=== PATIENT | male | born 2000 | race Caucasian/White ===

== ENCOUNTER 2020-07-16 17:59 | Emergency (ER) | payer BC, SELFPAY ==
--- NOTE | ~2020-07-16 | XR_ITS ---
EXAMINATION: XR ankle RT min 3V INDICATION: Right ankle pain TECHNIQUE: Four views of the right ankle are obtained. COMPARISON: None available FINDINGS: There is lateral and anterior soft tissue swelling of ankle. Bone alignment is normal. No f racture is identified. IMPRESSION: 1. Ankle soft tissue swelling without acute osseous abnormality. Reviewed, dictated and finalized at location A.
--- NOTE | 2020-07-16 18:01 | ED.LOWEXIN ---
HPI - Extremity Injury (Lower) General Chief Complaint: Extremity Injury, Lower Stated Complaint: right ankle injury Time Seen by Provider: 07/16/20 18:01 Source: patient and RN notes reviewed History of Present Illness HPI Narrative: Patient is a 19-year-old male who presents the urgent care with complaints of right ankle injury. Patient states that he was playing volleyball this evening and heard a pop and noticed immediate swelling to the lateral aspect of the right ankle and foot. Patient states that it is more painful to bear weight. States that he is kept it elevated with ice and ibuprofen. Denies of any other acute complaints or injuries. No acute distress noted. Patient aware of the plan of care. Some parts of this dictation were generated by voice recognition software and may contain typographical and/or grammatical inaccuracies. Related Data Home Medications Medication Instructions Recorded Confirmed bupropion HCl 150 mg PO DAILY 07/16/20 07/16/20 Allergies Allergy/AdvReac Type Severity Reaction Status Date / Time No Known Allergies Allergy Verified 07/16/20 18:23 Review of Systems Review of Systems: Narrative: CONSTITUTIONAL: Denies fever, chills, or sweats. EYES: Denies visual changes, redness, or discharge. ENT: Denies rhinorrhea, congestion, sore throat, or otalgia. CARDIOVASCULAR: Denies chest pain, palpitations, or edema. RESPIRATORY: Denies cough or dyspnea. GASTROINTESTINAL: Denies abdominal pain, nausea, vomiting, or diarrhea. GENITOURINARY: Denies dysuria or hematuria. SKIN: Denies rash or itching. MUSCULOSKELETAL: Reports of right ankle pain and swelling NEUROLOGIC: Denies headache, numbness, or weakness. All other systems reviewed are negative, except as documented in HPI. PMFSH Comments At the time of my signature, I reviewed and agree with the nursing past medical, surgical, social, and family history. There is no relevant family history pertinent to the patient complaint. Exam Narrative: Exam Narrative: GENERAL: This is a well-nourished, well-developed patient, in no apparent distress. HEAD: normocephalic, atraumatic. EYES: PERRL. Sclera clear/white. Vision is grossly intact. EARS: External ears normal NOSE: External nose normal with no obvious nasal discharge, nares without redness, no rhinorrhea. THROAT: Mucous membranes moist NECK: Neck supple SKIN: warm, intact with no suspicious lesions or rash, good texture and turgor. NEURO: awake, alert, and oriented to person, place and time. There were no obvious focal neurologic abnormalities. EXTREMITIES: Moderate lateral right malleolus edema and tenderness extending into the lateral right dorsal foot. Range of motion not tested due to pain. Pain exacerbated with weightbearing. No obvious deformity to the right lower extremity. Positive strong right pedal pulse with capillary refill less than 2 seconds. Course Vital Signs Vital signs: Vital Signs Temperature 98.6 F 07/16/20 18:04 Pulse Rate 96 07/16/20 18:04 Respiratory Rate 18 07/16/20 18:04 Blood Pressure 134/70 07/16/20 18:04 Pulse Oximetry 100 07/16/20 18:04 Temperature 98.6 F 07/16/20 18:04 Pulse Rate 96 07/16/20 18:04 Respiratory Rate 18 07/16/20 18:04 Blood Pressure 134/70 07/16/20 18:04 Pulse Oximetry 100 07/16/20 18:04 Reviewed MDM - Extremity Injury (Lower) MDM Narrative Medical decision making narrative: Reviewed x-ray results with the patient. He is aware the x-ray was negative. Advised the patient to wear an Edward wrap or a ankle splint for the next week for support. Stay off the foot for the next 3 to 5 days and keep it elevated. Use Tylenol/ibuprofen and ice for comfort and pain. If you develop any increase in swelling or persistent pain?follow-up with an orthopedic. Follow-up with your PCP within 2 to 5 days if her worsening symptoms or failure to improve. Differential Diagnosis Differential diagnosis: Likely ankle sprain and
[2020-07-16 18:04] VITALS: BP 134/70; PULSE 96; RESP 18; TEMP 37; O2SAT 100
--- NOTE | 2020-07-16 18:40 | PC.NURSE ---
PT DECLINED WHEELCHAIR TO RADIOLOGY
== END 2020-07-16 18:50 | disposition home or self-care (01) ==
PROVIDERS: Emergency Provider Nurse Practitioner Family; PCP Nurse Practitioner Family
DX: S93.401A Sprain of unspecified ligament of right ankle, initial encounter (principal); S96.911A Strain of unspecified muscle and tendon at ankle and foot level, right foot, initial encounter; X58.XXXA Exposure to other specified factors, initial encounter; Y93.68 Activity, volleyball (beach) (court); F32.9 Major depressive disorder, single episode, unspecified
CPT/HCPCS: 73610; 99213; G0463

== ENCOUNTER 2022-03-07 17:57 | Emergency (ER) | payer BC, SELFPAY ==
[2022-03-07 18:01] VITALS: BP 154/96; PULSE 105; RESP 20; TEMP 38.1; O2SAT 100
--- NOTE | 2022-03-07 18:02 | ED.URI ---
HPI - URI/Sore Throat General Chief Complaint: Upper Respiratory Infection Stated Complaint: ear and headache body aches drainage Time Seen by Provider: 03/07/22 18:03 Source: patient Mode of arrival: ambulatory Limitations: no limitations History of Present Illness HPI Narrative: Dyllan is a 21-year-old male patient presenting to the clinic today with complaints of bilateral ear pain, sore throat, runny nose, headache, body aches, and fever x 3 days. He reports he got strep often as a kid and had a tonsillectomy when he was in preschool. Related Data Home Medications Medication Instructions Recorded Confirmed bupropion HCl 300 mg 24 hr tablet, 1 tablet PO DAILY 03/07/22 03/07/22 extended release Allergies Allergy/AdvReac Type Severity Reaction Status Date / Time No Known Allergies Allergy Verified 03/07/22 18:17 Review of Systems Review of Systems: Pertinent positives per HPI. Patient denies any rash, visual changes, dizziness, shortness of breath, chest pain, palpitations, nausea, vomiting, diarrhea, constipation, abdominal pain, or any urinary issues. PMFSH Comments At the time of my signature, I reviewed and agree with the nursing past medical, surgical, social, and family history. There is no relevant family history pertinent to the patient complaint. Exam Narrative: General: Well-developed, well nourished, in no apparent distress Head: Normocephalic, atraumatic Eyes: Pupils equally round and reactive to light bilaterally, EOM intact, sclera and conjunctive clear, no discharge, lids normal Ears: TMs intact and clear, ear canals clear, no drainage, grossly hearing normal. Nose: Nares patent, no discharge, clear nasal inflammation, no sinus tenderness. Mouth: Oropharynx without lesions or masses, good dentition, MMM. Oropharynx red Neck: Supple, trachea midline, no enlargement of anterior or posterior cervical nodes, no thyroid masses or goiter palpable. Cardio: Regular rate and rhythm, s1 and s2 normal, no murmur appreciated. Resp: Clear to auscultation bilaterally anteriorly and posteriorly, no rhonchi, rales, wheezing or rubs Course Course Emergency Course: Portions of this record may have been created with voice recognition software. Level of Care: Express Care Visit Vital Signs Vital signs: Vital signs reviewed MDM - URI/Sore Throat MDM Narrative Medical decision making narrative: At the time of visit patient is resting comfortably on the exam table. Strep screen, influenza, and COVID testing was completed influenza testing and strep screen was negative. COVID-19 test was positive. Discussed the use of oral antibodies (Paxlovid) and patient is agreeable to this. Differential Diagnosis Differential diagnosis: Likely upper respiratory infection, otitis media, sinusitis, viral infection, bronchitis, influenza, pharyngitis and other (COVID-19) Discharge Plan Discharge Clinical Impression: COVID-19 Patient Disposition: Home, Self-Care Condition: Stable Instructions: Antibiotic Form, How To Wash Your Hands (ED), Droplet Precautions (ED), COVID-19 (Coronavirus Disease 2019) (ED), Face Coverings (Masks) and COVID-19 (ED), How to Recover from COVID-19 at Home (ED) Additional Instructions: Take prescription medications only as prescribed-Paxlovid Increase fluids and stay well hydrated Tylenol/motrin for pain/fever Flonase and OTC antihistamines as directed Vicks vapor rub to open sinuses Sinus rinses for congestion Cepacol spray, cough drops, throat lozenges, warm tea with honey/lemon, gargle salt water to soothe throat BRAT diet for diarrhea Clear liquids x 24 hours then advance as tolerated for nausea/vomiting May return to the clinic if symptoms worsen Go to the ED if you develop high fever not controlled by Tylenol or Motrin, dehydration, weakness, lethargy, shortness of breath, or chest pain. Follow up with your PCP in 3-5 days if symptoms persist. Pres
== END 2022-03-07 18:43 | disposition home or self-care (01) ==
PROVIDERS: Emergency Provider Nurse Practitioner Family; PCP Nurse Practitioner Family
DX: U07.1 COVID-19 (principal)
CPT/HCPCS: 87081; 87426; 87804; 87880; 99213; C9803; G0463

== ENCOUNTER 2022-03-11 14:03 | Emergency (ER) | payer BC, SELFPAY ==
--- NOTE | ~2022-03-11 | XR_ITS ---
EXAMINATION: XR chest 2V DATE: 03/11/2022 14:24 INDICATION: COVID positive. Progressing cough. TECHNIQUE: PA and lateral views of the chest were obtained. COMPARISON: None FINDINGS: The lungs are clear with no focal airspace opacities, pulmonary edema, pleural effusion or pneumothor ax. The cardiomediastinal silhouette is normal. Visualized bones and soft tissues are unremarkable. IMPRESSION: 1. Normal chest radiograph. Reviewed, dictated and finalized at location B. IMPRESSION: 1. Normal chest radiograph.
[2022-03-11 14:10] VITALS: BP 157/93; PULSE 112; RESP 18; TEMP 37.3; O2SAT 100
--- NOTE | 2022-03-11 14:19 | ED.URI ---
HPI - URI/Sore Throat General Chief Complaint: Upper Respiratory Infection Stated Complaint: covid positive Tuesday - Feeling worse Time Seen by Provider: 03/11/22 14:10 Source: patient and RN notes reviewed History of Present Illness HPI Narrative: Patient is a 21-year-old male who presents the urgent care with complaints of persistent cough, chest congestion, fatigue and sore throat since being diagnosed Tuesday with COVID. Patient was diagnosed at our facility Tuesday, went to the emergency room on Tuesday, and is now back today for the same symptoms. Patient has not had a fever for the last several days. Denies of any nausea or vomiting. Denies any short of breath. Patient states that they gave him Vicodin 1 time in the ER for his sore throat and he has been consistently taking Tylenol and ibuprofen. Patient was also given Paxlovid. No other acute complaints. No acute distress noted. Patient aware of the plan of care. Some parts of this dictation were generated by voice recognition software and may contain typographical and/or grammatical inaccuracies. Related Data Home Medications Medication Instructions Recorded Confirmed bupropion HCl 300 mg 24 hr tablet, 1 tablet PO DAILY 03/07/22 03/11/22 extended release Allergies Allergy/AdvReac Type Severity Reaction Status Date / Time No Known Allergies Allergy Verified 03/11/22 14:12 Review of Systems Review of Systems: CONSTITUTIONAL: Denies fever, chills, or sweats. Reports of fatigue EYES: Denies visual changes, redness, or discharge. ENT: Denies rhinorrhea, congestion, or otalgia. Reports of severe sore throat CARDIOVASCULAR: Denies chest pain, palpitations, or edema. RESPIRATORY: Reports of cough and chest congestion GASTROINTESTINAL: Denies abdominal pain, nausea, vomiting, or diarrhea. GENITOURINARY: Denies dysuria or hematuria. SKIN: Denies rash or itching. MUSCULOSKELETAL: Denies back pain, joint pain, or myalgia. NEUROLOGIC: Denies headache, numbness, or weakness. All other systems reviewed are negative, except as documented in HPI. PMFSH Comments At the time of my signature, I reviewed and agree with the nursing past medical, surgical, social, and family history. There is no relevant family history pertinent to the patient complaint. Exam Narrative: GENERAL: This is a well-nourished, well-developed patient, in no apparent distress. HEAD: normocephalic, atraumatic. EYES: PERRL. Sclera clear/white. Vision is grossly intact. EARS: External ears normal, auditory canals clear and without drainage, TMs normal without perforation. Hearing grossly intact. NOSE: External nose normal with no obvious nasal discharge, nares without redness, no rhinorrhea. THROAT: Mucous membranes moist, mild erythema noted posterior oropharynx with mild postnasal drainage NECK: Neck supple, non-tender without lymphadenopathy CARDIOVASCULAR: Regular rate and rhythm without murmurs, gallops, or rubs. RESPIRATORY: Clear to auscultation. Slightly diminished right lower lobe. No wheezes, rales, or rhonchi. SKIN: warm, intact with no suspicious lesions or rash, good texture and turgor. NEURO: awake, alert, and oriented to person, place and time. There were no obvious focal neurologic abnormalities. EXTREMITIES: No clubbing, cyanosis, or edema. Course Course Level of Care: Express Care Visit Vital Signs Vital signs: Vital Signs Temperature 99.2 F 03/11/22 14:10 Pulse Rate 112 H 03/11/22 14:10 Respiratory Rate 18 03/11/22 14:10 Blood Pressure 157/93 H 03/11/22 14:10 Pulse Oximetry 100 03/11/22 14:10 Oxygen Delivery Room Air 03/11/22 14:10 Temperature 99.2 F 03/11/22 14:10 Pulse Rate 112 H 03/11/22 14:10 Respiratory Rate 18 03/11/22 14:10 Blood Pressure 157/93 H 03/11/22 14:10 Pulse Oximetry 100 03/11/22 14:10 Oxygen Delivery Room Air 03/11/22 14:10 Reviewed-patient is informed that they may have pre-hypertension or hypertension based on
[2022-03-11 14:36] VITALS: BP 157/93; PULSE 112; RESP 18; TEMP 37.3; O2SAT 100
== END 2022-03-11 14:43 | disposition home or self-care (01) ==
PROVIDERS: Emergency Provider Nurse Practitioner Family; PCP Nurse Practitioner Family
DX: U09.9 Post COVID-19 condition, unspecified (principal); F41.9 Anxiety disorder, unspecified; F32.A Depression, unspecified
CPT/HCPCS: 71046; 99213; G0463

== ENCOUNTER 2022-03-17 09:41 | Emergency (ER) | payer BC, SELFPAY ==
--- NOTE | ~2022-03-17 | XR_ITS ---
XR ribs RT 2V w CXR 2V DATE: 03/17/2022 10:05 INDICATION: Right anterior rib pain after cough TECHNIQUE: PA and lateral chest. 3 views of the right ribs. COMPARISON: 03/11/2022 2 view chest FINDINGS: No right rib fracture or bone destruction is detected. No other significant bony abnormalit y. Normal heart size. No hilar or mediastinal enlargement. The lungs are clear of infiltrate or consolid ation. No pleural effusion or pulmonary laceration or pneumothorax. IMPRESSION: Negative examination Reviewed, dictated and finalized at location A. IMPRESSION: Negative examination
--- NOTE | 2022-03-17 09:44 | ED.CHESTPAIN ---
HPI - Chest Pain General Chief Complaint: Unspecified Stated Complaint: Right rib pain Time Seen by Provider: 03/17/22 09:43 Source: patient Mode of arrival: ambulatory Limitations: no limitations History of Present Illness HPI narrative: Mr. Arenas is a 21-year-old male patient presenting to the clinic today with complaints of right rib pain 2 to 3 days. He has been recently treated for COVID. States that he has been coughing so much that he has developed right-sided rib pain and he thinks this is possibly due to a pulled muscle or inflammation in the ribs. He reports that the pain is a little worse with inspiration however its more painful with coughing and movement. States he is having a productive cough with green phlegm. He denies any shortness of this time. He recently had a chest x-ray done 6 days ago when he was seen in the ER and it was negative at that time. He denies any new fever or chills. MD complaint: other (Rib pain) Related Data Home Medications Medication Instructions Recorded Confirmed bupropion HCl 300 mg 24 hr tablet, 1 tablet PO DAILY 03/07/22 03/17/22 extended release Allergies Allergy/AdvReac Type Severity Reaction Status Date / Time No Known Allergies Allergy Verified 03/17/22 09:54 Review of Systems Review of Systems: Pertinent positives per HPI. Patient denies any fever, chills, rash, headache, visual changes, dizziness, cough, runny nose, sore throat, shortness of breath, palpitations, nausea, vomiting, diarrhea, constipation, abdominal pain, or any urinary issues. PMFSH Comments At the time of my signature, I reviewed and agree with the nursing past medical, surgical, social, and family history. There is no relevant family history pertinent to the patient complaint. Exam Narrative: General: Well-developed, well nourished, in no apparent distress Head: Normocephalic, atraumatic. Chest: Normal appearance, even rise and fall of the chest wall with inspiration and expiration, tenderness to palpation over the right mid rib just below the breast Cardio: Regular rate and rhythm, s1 and s2 normal, no murmur appreciated. Resp: Clear to auscultation bilaterally, no rhonchi, rales, wheezing or rubs. Extremities: No deformity, no edema, no cyanosis, capillary refill less than 2 seconds, peripheral pulses palpable and strong. Integumentary: [place], warm, and dry, intact without lesion, no rashes. Course Course Emergency Course: Portions of this record may have been created with voice recognition software. Level of Care: Express Care Visit Vital Signs Vital signs: Vital signs reviewed MDM - Chest Pain MDM Narrative Medical decision making narrative: At the time of visit patient is resting comfortably on the exam table. He reports that he is having right-sided rib pain/chest wall pain with a productive cough. He is post COVID. Chest x-ray was obtained to rule out post COVID-pneumonia and was negative. I suspect the patient has a pulled muscle or chest wall inflammation. I will give a prescription for some prednisone for inflammation of the chest wall. Differential Diagnosis Differential diagnosis: Likely fracture of rib, atypical chest pain, costochondritis, chest pain and other (Chest wall inflammation, COVID-pneumonia, costochondritis) Discharge Plan Discharge Clinical Impression: Acute chest wall pain Patient Disposition: Home, Self-Care Condition: Stable Instructions: Chest Wall Pain (ED) Additional Instructions: Prednisone as prescribed Chest x-ray was negative for any pneumonia or rib fracture. Tylenol/Motrin as needed for pain or fever Increase fluids and stay well-hydrated Follow-up with your PCP and 3 to 5 days if symptoms persist or sooner if they worsen. Prescriptions: New prednisone 20 mg tablet 40 mg PO DAILY 5 Days Qty: 10 0RF No Action bupropion HCl 300 mg tablet extended release 24 hr 1 tablet PO DAILY Follow-up/Referr
[2022-03-17 09:45] VITALS: BP 150/82; PULSE 104; RESP 18; TEMP 36.9; O2SAT 99
--- NOTE | 2022-03-17 19:47 | ED.CHESTPAIN ---
HPI - Chest Pain General Chief Complaint: Unspecified Stated Complaint: Right rib pain Time Seen by Provider: 03/17/22 09:43 Source: patient Mode of arrival: ambulatory Limitations: no limitations History of Present Illness HPI narrative: Dyllan is a 21-year-old male patient presenting to the clinic today with complaints of right-sided rib pain. He reports that he has been coughing so hard due to his COVID. He has finished his COVID treatment however he is concerned that he may have pneumonia or may be some inflammation in his rib due to this Related Data Home Medications Medication Instructions Recorded Confirmed bupropion HCl 300 mg 24 hr tablet, 1 tablet PO DAILY 03/07/22 03/17/22 extended release Allergies Allergy/AdvReac Type Severity Reaction Status Date / Time No Known Allergies Allergy Verified 03/17/22 09:54 Course Vital Signs Vital signs: Vital Signs Temperature 36.9 C 03/17/22 09:45 Pulse Rate 104 H 03/17/22 09:45 Respiratory Rate 18 03/17/22 09:45 Blood Pressure 150/82 H 03/17/22 09:45 Pulse Oximetry 99 03/17/22 09:45 Oxygen Delivery Room Air 03/17/22 09:45 Temperature 36.9 C 03/17/22 09:45 Pulse Rate 104 H 03/17/22 09:45 Respiratory Rate 18 03/17/22 09:45 Blood Pressure 150/82 H 03/17/22 09:45 Pulse Oximetry 99 03/17/22 09:45 Oxygen Delivery Room Air 03/17/22 09:56 Discharge Plan Discharge Clinical Impression: Acute chest wall pain Patient Disposition: Home, Self-Care Condition: Stable Instructions: Chest Wall Pain (ED) Additional Instructions: Prednisone as prescribed Chest x-ray was negative for any pneumonia or rib fracture. Tylenol/Motrin as needed for pain or fever Increase fluids and stay well-hydrated Follow-up with your PCP and 3 to 5 days if symptoms persist or sooner if they worsen. Prescriptions: New prednisone 20 mg tablet 40 mg PO DAILY 5 Days Qty: 10 0RF No Action bupropion HCl 300 mg tablet extended release 24 hr 1 tablet PO DAILY Follow-up/Referrals: Hank,KELVIN Carrillo [Primary Care Provider] - Time of Disposition: 10:20
== END 2022-03-17 10:25 | disposition home or self-care (01) ==
PROVIDERS: Emergency Provider Nurse Practitioner Family; PCP Nurse Practitioner Family
DX: R07.89 Other chest pain (principal); Z86.16 Personal history of COVID-19; F32.A Depression, unspecified; F41.9 Anxiety disorder, unspecified
CPT/HCPCS: 71046; 71100; 99213; G0463

== ENCOUNTER 2022-09-07 09:28 | Emergency (ER) | payer BC, SELFPAY ==
[2022-09-07 09:57] VITALS: BP 141/80; PULSE 102; RESP 16; TEMP 37.3; O2SAT 100
--- NOTE | 2022-09-07 10:52 | ED.URI ---
HPI - URI/Sore Throat General Chief Complaint: Upper Respiratory Infection Stated Complaint: Cough/Fever Time Seen by Provider: 09/07/22 10:46 Source: patient and RN notes reviewed Mode of arrival: ambulatory Limitations: no limitations History of Present Illness HPI Narrative: 21-year-old male presents with concern for fever, cough, headache, sore throat. Reports symptoms started on Tuesday. Reports taking DayQuil NyQuil. He reports he has history of strep throat. MD elicited complaint: cough and sore throat Related Data Home Medications Medication Instructions Recorded Confirmed bupropion HCl 300 mg 24 hr tablet, 1 tablet PO DAILY 03/07/22 03/17/22 extended release hydroxyzine HCl 25 mg tablet mg 09/07/22 Allergies Allergy/AdvReac Type Severity Reaction Status Date / Time No Known Allergies Allergy Verified 03/17/22 09:54 Review of Systems Review of Systems: CONSTITUTIONAL: Reports malaise, fever. EYES: Denies visual changes, redness, or discharge. ENT: Reports rhinorrhea, congestion, sore throat. Denies sinus pain, otalgia CARDIOVASCULAR: Denies chest pain, palpitations, or edema. RESPIRATORY: Reports cough. Denies dyspnea. GASTROINTESTINAL: Denies abdominal pain, nausea, vomiting, diarrhea SKIN: Denies rash or itching. MUSCULOSKELETAL: Denies myalgia. NEUROLOGIC: Reports headache. All systems reviewed & are unremarkable except as noted in HPI and below PMFSH Comments At time of signature, agree with nursing past medical, surgical, social and family history. There is no relevant family history pertinent to the presenting complaint Exam Narrative: GENERAL: Well-appearing, well-nourished, and in no acute distress. HEAD: Normocephalic EYES: PERRLA, conjunctivae clear ENT: Nares clear, turbinates edematous and erythematous, clear discharge. Mucous membranes moist. TM pearly dumont with dull light reflex bilaterally; no tragal tenderness. Oropharynx not erythematous without lesions. Tonsils not enlarged and without exudate, no drooling, no hoarseness, no trismus, uvula midline. NECK: Supple. No lymphadenopathy CHEST: Clear to auscultation, breath sounds equal. No wheezing, rhonchi, rales, or stridor. No respiratory distress, speaks in full sentences. HEART: Regular rate and rhythm. No murmur heard. SKIN: Warm, dry, no rash. NEURO: Alert and oriented x3. PSYCH: Normal mood and affect Course Course Emergency Course: Patient is aware of diagnosis, understands and agrees to treatment plan. Anticipatory guidance given. Patient agrees to follow-up as directed and is aware of reasons to seek care at the emergency department. Portions of this record may have been created with voice recognition software Level of Care: Express Care Visit Vital Signs Vital signs: Vital Signs Temperature 99.2 F 09/07/22 09:57 Pulse Rate 102 H 09/07/22 09:57 Respiratory Rate 16 09/07/22 09:57 Blood Pressure 141/80 H 09/07/22 09:57 Pulse Oximetry 100 09/07/22 09:57 Oxygen Delivery Room Air 09/07/22 09:57 Temperature 99.2 F 09/07/22 09:57 Pulse Rate 102 H 09/07/22 09:57 Respiratory Rate 16 09/07/22 09:57 Blood Pressure 141/80 H 09/07/22 09:57 Pulse Oximetry 100 09/07/22 09:57 Oxygen Delivery Room Air 09/07/22 09:57 Reviewed. MDM - URI/Sore Throat MDM Narrative Medical decision making narrative: Differential diagnosis considered: Rodriguez virus, strep pharyngitis, allergic rhinitis, upper respiratory tract infection, sinusitis, rhinosinusitis, nasopharyngitis. viral pharyngitis, otitis media, otitis externa, pneumonia, bronchitis, viral cough syndrome, viral syndrome, and influenza. Exam findings show no acute concerns or changes; patient is non-toxic appearing and is in no distress. Patient is appropriate for outpatient treatment and follow-up. Lab Data Attestation: I reviewed the patient's lab results. Labs: Influenza A Screen Positive
== END 2022-09-07 11:28 | disposition home or self-care (01) ==
PROVIDERS: Emergency Provider Nurse Practitioner; PCP Nurse Practitioner Family
DX: J10.1 Influenza due to other identified influenza virus with other respiratory manifestations (principal)
CPT/HCPCS: 87081; 87804; 87880; 99213; G0463

== ENCOUNTER 2023-03-05 13:08 | Emergency (ER) | payer BC, SELFPAY ==
[2023-03-05 13:16] VITALS: BP 138/73; PULSE 92; RESP 18; TEMP 36.7; O2SAT 100
--- NOTE | 2023-03-05 13:36 | ED.MALEGU ---
HPI - Male Genitourinary General Chief complaint: Urogenital-Male Stated complaint: Urinary Problem History of Present Illness HPI Narrative: 22-year-old male presents to the [facility] Care complaining of pain with urination. Patient stated the pain with urination started about 3 days ago. Denies any increased frequency or blood in urine. Patient states he has had unprotected sex recently states he is not concerned for an STD but is not sure if he has been in contact with 1. Patient denies any testicle pain, swelling, or any penile discharge. Patient states there is some redness to the meatus of his penis. Patient denies any rashes or lesions. Patient stated he did have some suprapubic abdominal pain about 3 days ago but since then has subsided. Denies any fevers, chills, body aches, nausea, vomiting, diarrhea Related Data Home Medications Medication Instructions Recorded Confirmed bupropion HCl 300 mg 24 hr tablet, 1 tablet PO DAILY 03/07/22 03/05/23 extended release Allergies Allergy/AdvReac Type Severity Reaction Status Date / Time No Known Allergies Allergy Verified 03/05/23 13:27 Review of Systems Review of Systems: CONSTITUTIONAL: Denies fever, chills, or sweats. EYES: Denies visual changes, redness, or discharge. ENT: Denies otalgia and sore throat CARDIOVASCULAR: Denies chest pain, palpitations, or edema. RESPIRATORY: Denies cough or dyspnea. GASTROINTESTINAL: Denies abdominal pain, nausea, vomiting, or diarrhea. GENITOURINARY: Positive for dysuria. Negative for hematuria. SKIN: Denies rash or itching. MUSCULOSKELETAL: Denies back pain, joint pain, or myalgia. NEUROLOGIC: Denies headache, numbness, or weakness. Pertinent positives per HPI. PMFSH Comments At the time of my signature, I reviewed and agree with the nursing past medical, surgical, social, and family history. There is no relevant family history pertinent to the patient complaint. Exam Narrative: GENERAL: This is a well-nourished, well-developed patient, in no apparent distress. HEAD: normocephalic, atraumatic. EYES: Sclera clear/white. Vision is grossly intact. EARS: External ears normal, auditory canals clear and without drainage. Hearing grossly intact. NOSE: External nose normal with no obvious nasal discharge, nares without redness, no rhinorrhea. THROAT: Mucous membranes moist, posterior pharynx clear. NECK: Neck supple, non-tender without lymphadenopathy, masses or thyromegaly. CARDIOVASCULAR: Regular rate and rhythm without murmurs, gallops, or rubs. RESPIRATORY: Clear to auscultation. Breath sounds equal bilaterally. No wheezes, rales, or rhonchi. GASTROINTESTINAL: Abdomen soft, non-tender, nondistended. Bowel sounds are active. No hepato-splenomegaly, or palpable masses. No guarding. GENITOURINARY: Mild erythema to the meatus of the penis. No discharge, lesions, or rash. No scrotal swelling or testicular tenderness. SKIN: warm, intact with no suspicious lesions or rash, good texture and turgor. NEURO: awake, alert, and oriented to person, place and time. There were no obvious focal neurologic abnormalities. EXTREMITIES: No clubbing, cyanosis, or edema. No joint tenderness, effusion, or edema noted. BACK: Nontender without deformity or crepitus. No flank tenderness. Course Course Level of Care: Express Care Visit Vital Signs Vital signs: Vital Signs Temperature 98.1 F 03/05/23 13:16 Pulse Rate 92 03/05/23 13:16 Respiratory Rate 18 03/05/23 13:16 Blood Pressure 138/73 03/05/23 13:16 Pulse Oximetry 100 03/05/23 13:16 Oxygen Delivery Room Air 03/05/23 13:16 Temperature 98.1 F 03/05/23 13:16 Pulse Rate 92 03/05/23 13:16 Respiratory Rate 18 03/05/23 13:16 Blood Pressure 138/73 03/05/23 13:16 Pulse Oximetry 100 03/05/23 13:16 Oxygen Delivery Room Air 03/05/23 13:16 MDM - Male Genitourinary MDM Narrative Medical decision making narrative: You were treated prophylacti
[2023-03-05] MEDS: cefTRIAXone 500 MG, LIDOCAINE HCL 1% LOCAL INJ 1 ML IM (13:42)
== END 2023-03-05 14:05 | disposition home or self-care (01) ==
PROVIDERS: Emergency Provider Nurse Practitioner Family; PCP Nurse Practitioner Family
DX: R30.0 Dysuria (principal); F41.9 Anxiety disorder, unspecified; F32.A Depression, unspecified; Z86.16 Personal history of COVID-19
CPT/HCPCS: 81003; 87086; 87491; 87591; 87661; 96372; 99213; G0463; J0696

== ENCOUNTER 2025-06-24 19:13 | Emergency (ER) | payer OTHER, SELFPAY ==
[2025-06-24 19:18] VITALS: BP 150/96; PULSE 80; RESP 18; TEMP 36.7; O2SAT 100
--- OUTSIDE RECORDS SUMMARY | 2025-06-24 19:28 | XMS_ITS | Clinical Summary ---
Author Organization [facility] Address [address] [place] [address] Care Team Providers Care Graphics Intern Name Role Phone Gerardo Mckinney NP Primary Care Provider [phone] Allergies No known active allergies Medications buPROPion XL (WELLBUTRIN XL) 300 mg 24 hr tablet Take 1 tablet (300 mg total) by mouth daily Active azithromycin (ZITHROMAX) 250 mg tabletIndication s:Upper respiratory tract infection, unspecified type Take two tabs first day, then one tab daily x 4 days 6 tablet 08/15/2024 Active Active Problems No known active problems Social History Tobacco Use Types Packs/Day Years Used Date Smoking Tobacco: Never Assessed Sex and Gender Information Value Date Recorded Sex Assigned at Not on file Legal Sex Male 6:47 PM [employer] Gender Identity Not on file Sexual Orientation Not on file Obstetrics History Last Filed Vital Signs Vital Sign Reading Time Taken Comments Blood Pressure 126/80 08/15/2024 5:31 PM [employer] Pulse 88 08/15/2024 5:31 PM [employer] Temperature 37.1 C (98.8 F) 08/15/2024 5:31 PM [employer] Respiratory Rate 18 08/15/2024 5:31 PM [employer] Oxygen Saturation 99% 08/15/2024 5:31 PM [employer] Inhaled Oxygen Concentration - - Weight 71.7 kg (158 lb) 08/15/2024 5:31 PM [employer] Height 175.3 cm (5' 9) 08/15/2024 5:31 PM [employer] Body Mass Index 23.33 08/15/2024 5:31 PM [employer] Plan of Treatment Health Maintenance Due Date Last Done Comments Depression Screening 1999 Hepatitis C Screening 1999 Regular Well Visit/Exam 18-64 12/27/2017 DTaP/Tdap/Td Vaccine (7 - Td or Tdap) 05/29/2020 05/29/2010, 04/05/2005, 03/31/2001, Additional history exists Covid-19 Vaccine (4 2024-2 6 season) 2025 08/31/2021, 12/19/2020, 11/21/2020 Influenza Vaccine (#1) 2025 , 08/29/2021, 07/01/2017, Additional history exists Pneumococcal vaccine <65 Completed 001, 09/26/2000, 09/26/2000, Additional history exists Varicella Vaccines Completed 08/02/2008, 12/29/2000 Hepatitis B Screening Completed 09/26/2009 , 09/26/2000, 06/27/2000, Additional history exists HPV Vaccines Completed 02/26/2014, 08/10, 06/12/2013 Insurance [facility] [facility] [employer] Address: [facility] [id number] [id number] [place] [address] Care Teams Graphics Intern Relationship Specialty Start Date End Date Gerardo Mckinney NP PCP - General 03/08/22
[2025-06-24 19:33] LABS: EDSTREPNEGPOS1 Negative (Negative)
--- NOTE | 2025-06-24 19:38 | ED.URI ---
HPI - URI/Sore Throat General Chief Complaint: Upper Respiratory Infection Stated Complaint: sore throat Time Seen by Provider: 06/24/25 19:39 History of Present Illness HPI Narrative: 24-year-old male presented for complaint of sore throat for 3 days. He denies any associated symptoms. He is taking Mucinex and Tylenol for symptoms. Related Data Home Medications ?Medication ?Instructions ?Recorded ?Confirmed ?Last Taken ?Type bupropion HCl 300 mg 24 hr tablet, 1 tablet PO DAILY 03/07/22 03/05/23 Unknown History extended release emtricitabine 200 mg-tenofovir tablet PO 06/24/25 Unknown History alafenamide fumarate 25 mg tablet (Descovy) Allergies Allergy/AdvReac Type Severity Reaction Status Date / Time No Known Allergies Allergy Verified 06/24/25 19:22 Review of Systems Review of Systems: CONSTITUTIONAL: Denies body aches, fever, chills, or sweats. EYES: Denies visual changes, redness, or discharge. ENT: reports sore throat Denies rhinorrhea, congestion, or otalgia. CARDIOVASCULAR: Denies chest pain, palpitations, or edema. RESPIRATORY: Denies dyspnea. GASTROINTESTINAL: Denies abdominal pain, nausea, vomiting, or diarrhea. SKIN: Denies rash NEUROLOGIC: Denies headache Exam Narrative: GENERAL: well-appearing, no acute distress. EYES: conjunctivae clear ENT: Mucous membranes moist. TMs pearly dumont with normal light reflex bilaterally; no tragal tenderness. Oropharynx not erythematous without lesions. Tonsils not enlarged and without exudate. No drooling, no hoarseness, no trismus, uvula midline. No tripod positioning, hot potato voice, or soft palate swelling. NECK: Supple. No lymphadenopathy CHEST: Clear to auscultation, breath sounds equal. No respiratory distress, speaks in full sentences. HEART: Regular rate and rhythm. No murmur heard. SKIN: Warm, dry, no rash. NEURO: Alert and oriented x3. Course Course Emergency Course: Patient is aware of diagnosis, understands and agrees to treatment plan. Anticipatory guidance given. Patient agrees to follow-up as directed and is aware of reasons to seek care at the emergency department. Portions of this record may have been created with voice recognition software Level of Care: Express Care Visit Vital Signs Vital signs: Vital Signs Temperature 98.1 F 06/24/25 19:18 Pulse Rate 80 06/24/25 19:18 Respiratory Rate 18 06/24/25 19:18 Blood Pressure 150/96 H 06/24/25 19:18 Pulse Oximetry 100 06/24/25 19:18 Oxygen Delivery Room Air 06/24/25 19:18 Temperature 98.1 F 06/24/25 19:18 Pulse Rate 80 06/24/25 19:18 Respiratory Rate 18 06/24/25 19:18 Blood Pressure 150/96 H 06/24/25 19:18 Pulse Oximetry 100 06/24/25 19:18 Oxygen Delivery Room Air 06/24/25 19:18 MDM - URI/Sore Throat MDM Narrative Medical decision making narrative: Negative strep result reviewed with pt. Advise supportive treatments. Patient is appropriate for outpatient treatment and follow-up. Differential Diagnosis Differential diagnosis: Likely upper respiratory infection, viral infection and pharyngitis Lab Data Labs: Lab Results 06/24/25 Range/Units 19:22 POC Grp A Strep Screen Negative (Negative) Discharge Plan Discharge Clinical Impression: Pharyngitis Patient Disposition: Home Condition: Stable Instructions: Antibiotic Form, Pharyngitis (ED) Additional Instructions: Rapid strep swab was negative today You will be notified in a few days if the culture comes back positive for strep, and appropriate antibiotics will be called in at that time. if symptoms are due to a viral illness, it is not treated with antibiotics. Viral symptoms can be present for up to 10-14 days. Recommendations: Tylenol every 8 hours as needed for pain/fever Soft foods, cool liquids, warm tea. Gargle with warm saltwater twice a day. Chloraseptic spray and throat lozenges. Rest and stay hydrated. --Follow up with your PCP --Go to the ER immediately if you cannot swallow your saliva, trouble breathing/wheezing, throat swelling, pain is persistent and severe Patient Language: [place] Prescriptions: No Action bupropion HCl 300 mg tablet extended release 24 hr 1 tablet PO DAILY Descovy 200-25 mg tablet PO Follow-up/Referrals: PHYSICIAN,NAPKIN BAND WRAPPER [Primary Care Provider, Internal Medicine] Time of Disposition: 19:42
== END 2025-06-24 19:45 | disposition home or self-care (01) ==
PROVIDERS: Emergency Provider Nurse Practitioner Family
DX: J02.9 Acute pharyngitis, unspecified (principal)
CPT/HCPCS: 87081; 87880; 99213; G0463